=== PATIENT | female | born 1955 | race Caucasian/White ===

== ENCOUNTER 2021-01-30 16:46 | Outpatient (REF) | payer SELFPAY ==
[2021-02-01 12:09] LABS: COVID-19 RT-PCR UVMMC Result Negative (Negative)
== END 2021-01-30 16:47 | disposition home or self-care (01) ==
LOC: LBN 16:46
PROVIDERS: Visit Provider Physician Assistant Medical
DX: Z20.822 Contact with and (suspected) exposure to COVID-19 (principal)
CPT/HCPCS: U0003

== ENCOUNTER 2021-11-21 11:32 | Outpatient (REF) | payer MEDICAID, SELFPAY ==
[2021-11-21 15:10] LABS: ALT 30 U/L (14-59); AST 19 U/L (15-37); Albumin 3.7 g/dL (3.4-5.0); Alkaline Phosphatase 116 U/L (46-116); Anion Gap 9.6 mmol/L (3-11); BUN 22 mg/dL (7-18); Bilirubin, Total 0.7 mg/dL (0.2-1.0); CO2 26.4 mmol/L (21.0-32.0); CREATININE 0.8 mg/dL (0.55-1.02); Calcium 8.9 mg/dL (8.5-10.1); Chloride 104 mmol/L (98-107); Glucose 116 mg/dL (74-106); Potassium 3.8 mmol/L (3.5-5.1); Sodium 140 mmol/L (136-145); TSH 2.78 uIU/mL (0.36-3.74); Total Protein 7.8 g/dL (6.4-8.2)
[2021-11-21 15:26] LABS: Calculated LDL 152 mg/dL (<100); Cholesterol 243 mg/dL (<200); HDL Cholesterol 59 mg/dL (40-60); Triglyceride 163 mg/dL (<150)
[2021-11-21 16:38] LABS: Hemoglobin A1C 5.7 % (<5.7)
== END 2021-11-21 11:33 | disposition home or self-care (01) ==
LOC: NCHCN 11:32
PROVIDERS: Visit Provider Physician Assistant
DX: E03.9 Hypothyroidism, unspecified (principal); R73.03 Prediabetes; I10 Essential (primary) hypertension; E78.5 Hyperlipidemia, unspecified
CPT/HCPCS: 80053; 80061; 83036; 84443

== ENCOUNTER → 2021-12-19 02:17 | Outpatient (CLI) | payer MEDICAID, SELFPAY ==
--- NOTE | 2021-12-19 08:30 | DI.MAMMO_ITS ---
Exam(s) MAMMO SCREENING EXAM: MAMMO SCREENING CLINICAL HISTORY: SCREENING, Z12.39 TECHNIQUE: Mammograms were interpreted according to the usual protocol including computer analysis w [employer] CAD system, tomosynthesis and C-view imaging. COMPARISON: No exams were available for comparison. Prior exams were unable to be retrieved. FINDINGS: The breasts are composed of scattered fibroglandular densities, Breast Density category B. No suspicious masses or suspicious microcalcifications are seen. No skin thickening or abnormal axillary lymph nodes are seen. . IMPRESSION: BI-RADS Category 1, Negative mammogram Yearly screening mammography is recommended. Breast Density - Category B, scattered fibroglandular densities. A negative radiographic report should not delay biopsy if a dominant or clinically suspicious mass is present. Up to ten percent of cancers are not identified on mammography. A negative report may reinforce clinical impression. Adenosis and dense breasts may obscure an underlying neoplasm. False positive reports average 6 to 10%. Patient will receive a letter notifying them of these results.
== END ==
PROVIDERS: PCP Physician Assistant; Visit Provider Physician Assistant
DX: Z12.31 Encounter for screening mammogram for malignant neoplasm of breast (principal)
CPT/HCPCS: 77063; 77067

== ENCOUNTER 2022-03-12 06:22 | Day surgery (SDC) | payer MEDICAID, SELFPAY ==
--- NOTE | 2022-03-12 06:26 | W.ANESPRE ---
General Info Date of Service Date Performed: 03/12/22 Height: 4 ft 11 in Weight: 78.018 kg Body Mass Index (BMI): 34.7 Surgical Procedure: Operation Date: 03/12/22 07:40 Proposed Procedure Side Surgeon p Dupuytrens Release LRF Right Sterling Molina MD Meds Allergies and Home Medications Allergies Allergy/AdvReac Type Severity Reaction Status Date / Time codeine AdvReac Intermediate Nausea Verified 03/12/22 06:27 Home Medication Medication Instructions Recorded hydrochlorothiazide 25 mg tablet 25 mg PO QAM #30 tabs 01/10/13 levothyroxine 100 mcg tablet 100 mcg PO DAILY 01/10/13 calcium carbonate 600 mg-vitamin 2 cap PO DAILY 11/27/21 D3 12.5 mcg (500 unit) capsule (Calcium 600 with Vitamin D3) rosuvastatin 20 mg tablet 20 mg PO DAILY 11/27/21 Current Visit Medications: Current Medications Generic Name Dose Route Start Last Admin Trade Name Freq PRN Reason Stop Dose Admin Ringer's Solution 1,000 mls @ 80 mls/hr 03/12/22 06:00 IV 04/10/22 23:59 INFUSION CORKY Cefazolin Sodium/Dextrose 2 gm in 50 mls @ 100 mls/hr 03/12/22 06:00 Ancef Duplex IVPB 03/12/22 16:00 PREOP CORKY IV Miscellaneous Supplies 1 each 03/12/22 06:00 Iv Access IV 04/10/22 23:59 DIRECTED CORKY Sodium Chloride 0 ml 03/12/22 06:00 Normal Saline Flush 10 Ml Syr IV 04/10/22 23:59 PRN PRN Sodium Chloride 0 ml 03/12/22 06:00 Normal Saline 10 Ml Vial IJ 04/10/22 23:59 DIRECTED PRN Sterile Water 0 ml 03/12/22 06:00 Water,Injection,Sterile 10 Ml Vial IJ 04/10/22 23:59 DIRECTED PRN PFSH Active Problems Active Problems: Problem Status Onset Code Dupuytren's contracture of both hands M72.0 Scalp cyst L72.9 Medical History Medical History Arthritis Dupuytren contracture Essential hypertension Hyperlipidemia Hypothyroid Insomnia Nicotine dependence Obesity Prediabetes Vitamin D deficiency Medical History Comments:: Hx of apenea Surgical History Surgical History (Updated 03/12/22 @ 06:26 by Enrique Raya) Hx of cholecystectomy Hx of hysterectomy Tobacco Smoking/Tobacco Use Status: Current every day Tobacco Type: cigarettes Alcohol Alcohol Intake: current Alcohol intake frequency: a few times a week Substance Use Substance use: Never Substance use type: does not use Vital Signs and Lab Results Lab Results Blood Type / Crossmatch: No Data to Display Complete Blood Count: No Data to Display Complete Metabolic Panel: No Data to Display Liver Function Panel: No Data to Display Coagulation Panel: No Data to Display Cardiac Panel: No Data to Display Arterial Blood Gas: No Data to Display Venous Blood Gas: No Data to Display Pancreas Panel: No Data to Display Thyroid Panel: No Data to Display Infectious Disease: No Data to Display Blood Cultures: No Data to Display Toxicology Panel: No Data to Display Anesthesia Assessment and Plan Anesthesia History Personal History: Delayed Emergence Family History: No Family History of Anesthesia Complications Exercise Tolerance Exercise Tolerance: Metabolic Equivalents>4 Pertinent Negatives Pertinent Negatives: No Symptoms of GERD, No Major Cardiovascular Symptoms or Complaints, No Major Pulmonary Symptoms or Complaints and No History of CVA/TIA Cardiac & Pulmonary Exam Cardiac Exam: Normal S1/S2 Heart Sounds Pulmonary Exam: Clear Bilateral Breath Sounds Implantable Cardiac Device Does patient have a Pacemaker or an ICD?: No Airway Exam Known Difficult Airway: No Mallampati Class: 2 Mouth Opening: Normal (> 3cm) Thyromental Distance: Greater than 3 cm Neck Range of Motion: Full ROM Neck Circumference: Normal Teeth Condition: Normal Dentition ASA Classification ASA Score: ASA 2 Emergency Case?: No NPO Status NPO Status: NPO Clears >2 hours, Solids >8 hours Anesthesia Plan Resuscitation Status: Full Code Anesthesia Technique: General Anesthesia Airway Planned: Natural Airway Monitors Used: Standard Monitors
[2022-03-12 06:37] VITALS: BP 151/85; PULSE 63; RESP 16; TEMP 36.6; O2SAT 97
[2022-03-12] MEDS: Lactated Ringers 1,000 ML 80 ML IV (06:56)
[2022-03-12 07:21] VITALS: BMI 34.7
--- NOTE | 2022-03-12 07:22 | W.PREOPHP ---
Assessment and Plan Assessment and plan (1) Dupuytren's contracture of both hands: Status: Acute Assessment and plan: Alivia is a 67-year-old who has bilateral Dupuytren's contractures. Her left hand is most bothersome with a notable PIP contracture and a large central cord. Given the amount of contracture I do recommend operative fixation. Please see the previous office note for a review of this discussion. She has elected to proceed with a partial palmar fasciectomy with extension onto the ring finger for the spiral cord which is ras the PIP joint. I reviewed the risk of the procedure to include bleeding, infection, pain, stiffness, damage nerves and vessels, damage to muscle and tendons, recurrence, incomplete return of function, skin healing difficulties. Despite these risk, she elects to proceed. History of Present Illness History of Present Illness Chief Complaint: Left Palm and Ring Finger Dupuytren's Contracture Narrative: Alivia is a 67-year-old has bilateral Dupuytren's contracture. She has a notable PIP contracture about the left ring finger and a large cord within the left palm. She has been dealing this for some time but she is now having interference with her daily activities. She is here today for Dupuytren's contracture release of the left hand. She had no changes to her health. Review of Systems All systems reviewed & are unremarkable except as noted in HPI and below PFSH All Active Problems Scalp cyst (Acute) Dupuytren's contracture of both hands (Acute) Medical History Arthritis Dupuytren contracture Essential hypertension Hyperlipidemia Hypothyroid Insomnia Nicotine dependence Obesity Prediabetes Vitamin D deficiency Surgical History Hx of cholecystectomy Hx of hysterectomy Social History Smoking/Tobacco Use Status: Current every day Tobacco Type: cigarettes Smoking risk assessment performed?: Yes Alcohol Intake: current Alcohol Intake frequency: a few times a week Drug use: Never Substance use type: does not use Do you feel safe at home: Yes Do you feel safe in your relationship?: Yes Meds Allergies and Home Medications Allergies Allergy/AdvReac Type Severity Reaction Status Date / Time codeine AdvReac Intermediate Nausea Verified 03/12/22 06:27 Home Medications Medication Instructions Recorded Confirmed Type hydrochlorothiazide 25 mg tablet 25 mg PO QAM #30 tabs 01/10/13 03/12/22 Rx levothyroxine 100 mcg tablet 100 mcg PO DAILY 01/10/13 03/12/22 History calcium carbonate 600 mg-vitamin 2 cap PO DAILY 11/27/21 03/12/22 History D3 12.5 mcg (500 unit) capsule (Calcium 600 with Vitamin D3) rosuvastatin 20 mg tablet 20 mg PO DAILY 11/27/21 03/12/22 History Exam Resp Auscultation: clear to auscultation bilaterally Cardio Rate: regular rate Rhythm: regular rhythm Results Last Vital Signs Temp 36.6 C 03/12/22 06:37 Pulse 63 03/12/22 06:37 Resp 16 03/12/22 06:37 BP 151/85 H 03/12/22 06:37 Pulse Ox 97 03/12/22 06:37
--- NOTE | 2022-03-12 07:25 | PDOC.DSDIS_ITS ---
Date of service: 03/12/22 Time of Service: 07:26 Discharge Plan Disposition Patient Disposition: HOME Condition: Good Discharge Details Reason For Visit: L Dupuytren's Release Attending Provider: Sterling Molina Primary Care Provider: David Sanchez Home Meds and New Rx's Prescriptions: New acetaminophen 500 mg tablet 1,000 mg PO TID Qty: 90 0RF hydrocodone-acetaminophen 5-325 mg tablet 1 tab PO Q6H PRN (Reason: pain) Qty: 6 0RF ibuprofen 600 mg tablet 600 mg PO TID PRN (Reason: pain) Qty: 90 0RF Continued calcium carbonate-vitamin D3 [Calcium 600 with Vitamin D3] 600 mg-12.5 mcg (500 unit) capsule 2 cap PO DAILY rosuvastatin 20 mg tablet 20 mg PO DAILY levothyroxine 100 MCG tablet 100 mcg PO DAILY hydrochlorothiazide 25 MG tablet 25 mg PO QAM Qty: 30 0RF Discharge Instructions Additional Instructions: Dupuytren's Contracture Discharge Instructions Activity: You may use your fingers for light activity. You should limit any excessive motion or forceful gripping until the sutures have been removed. Dressings: You should keep the initial splint on until your follow-up visit in 7-10 days. You should avoid getting the splint wet. Medications: - You should take Tylenol and Ibuprofen around the clock as prescribed or per supervisor component assembler's recommendations. - You have Hydrocodone prescribed for breakthrough pain control. Take only as needed and limit use as much as possible. This may cause constipation. Follow-up: 7-10 days for wound check and suture removal. Referrals: Sterling Molina MD [ [facility] STAFF PHYSICIAN] - Equipment/Supplies: Splint Activity:: Elevate Remove Dressings/Wound Care:: Do Not Remove Shower/Bathe:: Cover Diet:: As Tolerated Discharge Orders Discharge Orders: Discharge Order (Routine); Ordered 03/12/22 Ordered By: Gabriel Uribe DS: Diagnosis Discharge Diagnosis (1) Dupuytren's contracture of both hands: Status: Acute
[2022-03-12] MEDS: ceFAZolin 2 GM/50 ML BAG IVPB (07:32)
[2022-03-12] MEDS: Lidocaine 1% Pres-Free W/EPI 1/200,000 10 ML VIAL (07:45)
[2022-03-12 08:19] VITALS: BP 107/70; PULSE 59; RESP 18; TEMP 36.4; O2SAT 96
[2022-03-12 08:47] VITALS: BP 137/73; PULSE 57; RESP 16; TEMP 36.3; O2SAT 98
--- NOTE | 2022-03-12 10:42 | W.ANESPOSTOP ---
Postoperative Evaluation Date, Time and Location Date Performed: 03/12/22 Time Performed: 08:47 Patient Location: Day Surgery Unit Vital Signs Most Recent Imported Vital Signs: Most Recent Vital Signs Temp Pulse Resp BP Pulse Ox 36.3 C L 57 L 16 137/73 98 03/12/22 08:47 03/12/22 08:47 03/12/22 08:47 03/12/22 08:47 03/12/22 08:47 Pain Score Most Recent Pain Score: Most Recent Pain Score Pain Level 0 03/12/22 08:47 Assessment Mental Status: Awake (Alert & Oriented to Patient Baseline) Airway and Respiratory Function: Patent airway with normal (patient baseline) respiratory exam Cardiovascular Function: Hemodynamically Stable Hydration Status: Adequately Hydrated Nausea & Vomiting: No Nausea or Vomiting Pain: Pt. Denies Any Pain Peripheral Nerve Block: Patient did not receive a nerve block
--- NOTE | 2022-03-12 21:04 | W.PM.OP ---
Date of service: 03/12/22 Time of Service: 08:00 Operative Note Operative Note DATE OF PROCEDURE: 03/12/22 PRE-OP DIAGNOSIS: Left ring finger Dupuytren's contracture POST-OP DIAGNOSIS: same PROCEDURE: Partial palmar fasciectomy of the left ring finger ray with extension onto the ring finger, up to the PIP joint SURGEON: Sterling Molina ANESTHESIA TYPE: General:No Airway Refer to Anesthesia Record ESTIMATED BLOOD LOSS: 10 PATHOLOGY: none sent TOURNIQUET TIME: 0 COMPLICATIONS: None Patient was transported to: same day Patient's condition: stable Indications: I have seen Alivia in clinic for symptoms Dupuytren's contracture, of the palm and ring finger. She had significant PIP contracture which made indications for surgical release. I discussed with her the options of treatment and she elected to proceed with partial palmar fasciectomy. I discussed the technical features of the case. I reviewed the risks of the procedure to include, but not limited to, bleeding, infection, pain, stiffness, incomplete release, damage to nerves or vessels, recurrence. Despite these risks, the patient elected to proceed. Findings: There was a dense central cord extending from the palmar fascia distally terminating around the A1 jin with an extension of a lateral cord up to the PIP joint. These cord structures were removed. Procedure Description: Alivia was greeted in the preoperative holding area where the correct side was identified and marked. The consent was reviewed with the patient and signed. All questions were answered. She was taken back to the operating room. The patient was placed into the supine position on the operating room table with the left arm on an arm board. All bony prominences were well padded. No prophylactic antibiotics were administered since this was a clean, elective hand surgical case. The left arm was then prepped with Chloraprep and draped in a standard fashion with stockinette and extremity drape. A timeout to confirm correct identity, side and site, procedure, allergies, anesthesia, and medical concerns was performed. A general, uninstrumented airway, anesthesia was then administered. The surgical site was marked as a Trisha type incision extending from the palm and onto the ring finger. This area was then anesthetized with 1% Lidocaine with epinephrine. This incision was then taken down through the skin. The central cord in the palm was extremely adherent and there is sections of the skin which were folded and attached to the underlying cord. This was slowly elevated off of the underlying cord and so that the skin was freely mobile. This was taken out to the PIP joint of the ring finger. Once again the corners increases of the contracture difficult due to their adhered nature to the cord. Once this was elevated the cord was visualized. Starting distally I elevated the cord from its attachment down to the ulnar side of the ring finger. This seemed to be a lateral base cord. I was unable to find any neurovascular bundle palmar to the cord. I was able to work underneath the cord and then transected distally. I then slowly began elevating from the other soft tissues moving from a distal to proximal direction. This then extended onto the central cord more proximally. There was an extension of this cord going down towards the A1 jin. This was released completely. The cord was fully taken down into the palm and then resected from its origin of the proximal palmar fascia. The finger now is able to be fully extended. No tourniquet was used and there was no apparent arterial injury no nervous injury. The finger had full extension. The wound was then irrigated and the skin was closed with a 4-0 Nylon. The wound was dressed with Xeroform, 4 x 4's, web roll. She was placed into an extension splint involving the ulnar 3 digits keeping the finger extended at maximal extension. The patient tolerated the procedure well and was returned to the Same Day Surgery area in a stable condition suffering no known complication.
== END 2022-03-12 09:20 | disposition home or self-care (01) ==
PROVIDERS: PCP Physician Assistant; Visit Provider Student in an Organized Health Care Education/Training Program
PROC: (CPT 26045; principal; 2022-03-12 07:30)
DX: M72.0 Palmar fascial fibromatosis [Dupuytren] (principal); I10 Essential (primary) hypertension; E78.5 Hyperlipidemia, unspecified; R73.03 Prediabetes
CPT/HCPCS: 26123; J0690; J2704

== ENCOUNTER → 2022-06-23 09:57 | Outpatient (BNVA) | payer MEDICARE, MEDICAID, SELFPAY | PROVIDERS: PCP Physician Assistant; Referring Provider Physician Assistant; Visit Provider Surgery | DX: D17.9 Benign lipomatous neoplasm, unspecified (principal); L72.3 Sebaceous cyst | CPT/HCPCS: 11442 ==

== ENCOUNTER 2022-06-23 11:14 | Outpatient (REF) | payer MEDICARE, MEDICAID, SELFPAY ==
--- NOTE | 2022-06-23 10:40 | SKI_PTH ---
PATIENT: Alivia Mena LOC: [facility] U#:[id number] AGE/SX: 67/F ROOM: RE06/23/[address]: Tricia Diane : 1955 BED: DIS: 06/23/2022 SPEC #: [id number] RECD: 06/23/22 12:28 STATUS: KIARA REQ #: [id number] MJ: 06/23/22 10:[address]: Tricia Diane DEPT: Surgical Specimen RECD BY: Alivia Lynn ENTERED: 06/23/22 12:28 SP TYPE: SKI OTHR DR: David Sanchez Tissues: 1 - SKIN BIOPSY(SHAVE/PUNCH) Procedures: SKIN LEVEL 4 Comments: [id number]
== END 2022-06-23 11:15 | disposition home or self-care (01) ==
LOC: LBN 11:14
PROVIDERS: PCP Physician Assistant; Visit Provider Surgery
DX: D17.0 Benign lipomatous neoplasm of skin and subcutaneous tissue of head, face and neck (principal)
CPT/HCPCS: 88305

== ENCOUNTER → 2022-07-03 11:20 | Outpatient (BNVA) | payer MEDICARE, MEDICAID, SELFPAY | PROVIDERS: PCP Physician Assistant; Referring Provider Physician Assistant; Visit Provider Surgery | DX: D17.9 Benign lipomatous neoplasm, unspecified (principal); Z87.820 Personal history of traumatic brain injury ==

== ENCOUNTER 2022-07-03 11:42 | Outpatient (REF) | payer MEDICARE, MEDICAID, SELFPAY ==
[2022-07-03 12:51] LABS: BUN 23 mg/dL (7-18); CREATININE 0.8 mg/dL (0.55-1.02); Calcium 9.2 mg/dL (8.5-10.1); Chloride 105 mmol/L (98-107); Estimated GFR 81.72 (mL/min/1.73m2); Glucose 95 mg/dL (74-106); Potassium 3.8 mmol/L (3.5-5.1); Sodium 142 mmol/L (136-145)
== END 2022-07-03 11:43 | disposition home or self-care (01) ==
LOC: LBN 11:42
PROVIDERS: PCP Physician Assistant; Visit Provider Surgery
DX: E03.9 Hypothyroidism, unspecified; E78.5 Hyperlipidemia, unspecified; F17.200 Nicotine dependence, unspecified, uncomplicated; R73.03 Prediabetes; Z87.820 Personal history of traumatic brain injury
CPT/HCPCS: 80048

== ENCOUNTER 2023-08-05 08:56 | Outpatient (REF) | payer OTHER, SELFPAY ==
[2023-08-05 15:41] LABS: ALT 29 U/L (14-59); AST 13 U/L (15-37); Albumin 4.1 g/dL (3.4-5.0); Alkaline Phosphatase 129 U/L (46-116); Anion Gap 12.6 mmol/L (3-11); BUN 20 mg/dL (7-18); Bilirubin, Total 0.8 mg/dL (0.2-1.0); CO2 27.4 mmol/L (21.0-32.0); CREATININE 0.8 mg/dL (0.55-1.02); Calcium 9.6 mg/dL (8.5-10.1); Calculated LDL 164 mg/dL (<100); Chloride 104 mmol/L (98-107); Cholesterol 270 mg/dL (<200); Estimated GFR 81.21 (mL/min/1.73m2); Glucose 106 mg/dL (74-106); HDL Cholesterol 75 mg/dL (40-60); Potassium 4.2 mmol/L (3.5-5.1); Sodium 144 mmol/L (136-145); TSH 5.28 uIU/Ml (0.36-3.74); Triglyceride 158 mg/dL (<150)
[2023-08-05 16:17] LABS: Hemoglobin A1C 5.8 % (<5.7)
== END 2023-08-05 08:57 | disposition home or self-care (01) ==
LOC: NCHCN 08:56
PROVIDERS: PCP Physician Assistant; Visit Provider Physician Assistant
DX: I10 Essential (primary) hypertension (principal); R73.03 Prediabetes
CPT/HCPCS: 80053; 80061; 83036; 84443

== ENCOUNTER → 2023-08-13 04:26 | Outpatient (CLI) | payer OTHER, SELFPAY ==
--- NOTE | 2023-08-13 12:33 | DI.MAMMO_ITS ---
Exam(s) MAMMO SCREENING EXAM: MAMMO SCREENING CLINICAL HISTORY: SCREENING,Z12.31 TECHNIQUE: Bilateral full field digital CC and MLO mammographic images were obtained with 3D tomosyn thesis and utilizing computer aided detection (CAD). COMPARISON: Available for comparison. FINDINGS: Masses/Architectural Distortion: None seen. Microcalcifications: No suspicious pleomorphic-type are seen. Skin Thickening/Nipple Retraction: None. IMPRESSION: 1. No significant interval change with no specific features of malignancy noted. 2. Unless there is more urgent need, screening mammography is recommended, as per [employer] guidelines. BI-RADS Category 1 - Negative Breast Density - Category B - Scattered areas of fibroglandular density Breast density category C or D implies that the patient has dense breast tissue. Dense breast tissue is very common and is not abnormal but dense breast tissue can make it harder to find cancer on a ma mmogram. Also, dense breast tissue may increase their breast cancer risk. This information about the result of the mammogram report was provided to the patient to raise their awareness. Use this report when you speak with the patient about their risks for breast cancer, which includes their family hist ory. At that time, you may recommend for more screening tests (Ultrasound or MRI) as they might be us eful based on their risk. A negative radiographic report should not delay biopsy if a dominant or clinically suspicious mass is present. Up to ten percent of cancers are not identified on mammography. A negative report may reinforce clinical impression. Adenosis and dense breasts may obscure an underlying neoplasm. False positive reports average 6 to 10%. Patient will receive a letter notifying them of these results.
== END ==
PROVIDERS: PCP Physician Assistant; Visit Provider Physician Assistant
DX: Z12.31 Encounter for screening mammogram for malignant neoplasm of breast (principal)
CPT/HCPCS: 77063; 77067

== ENCOUNTER 2025-04-17 11:10 | Outpatient (REF) | payer MEDICARE, MEDICAID, SELFPAY ==
[2025-04-17 15:45] LABS: HCT 37.3 % (36.0-46.0); HGB 12.4 g/dL (11.2-15.7); MCH 28.9 pg (27.0-33.0); MCHC 33.2 % (32.0-36.0); MCV 87 fL (80-95); MPV 10.9 fL (8.0-11.0); Platelet Count 326 10^3/uL (130-400); RBC 4.29 10^6/uL (3.93-5.22); RDW 13.0 % (11.7-14.6); RDW-SD 41.0 fL; WBC 6.67 10^3/uL (4.4-10.8)
[2025-04-17 16:04] LABS: Hemoglobin A1C 5.5 % (<5.7); TSH 1.65 uIU/mL (0.55-4.78); Vitamin D 25 Total 28 ng/mL (30-100)
[2025-04-17 16:12] LABS: Anion Gap 8.9 mmol/L (3-11); BUN 17 mg/dL (9-23); CO2 30.1 mmol/L (20.0-31.0); Calcium 9.1 mg/dL (8.3-10.6); Chloride 106 mmol/L (98-107); Cholesterol 167 mg/dL (<200); Glucose 104 mg/dL (74-106); HDL Cholesterol 70 mg/dL (>40); Potassium 3.6 mmol/L (3.5-5.1); Sodium 145 mmol/L (136-145)
== END 2025-04-17 11:11 | disposition home or self-care (01) ==
LOC: NCHCN 11:10
PROVIDERS: PCP Physician Assistant; Visit Provider Physician Assistant
DX: E78.5 Hyperlipidemia, unspecified (principal); R73.03 Prediabetes; E03.9 Hypothyroidism, unspecified; E55.9 Vitamin D deficiency, unspecified
CPT/HCPCS: 80048; 80061; 82306; 85027; 83036; 84443

== ENCOUNTER 2025-04-21 15:00 | Outpatient (CLI) | payer MEDICARE, MEDICAID, SELFPAY ==
[2025-04-21 15:30] LABS: D-Dimer 632 ng/mlFEU (<500)
== END 2025-04-21 15:01 | disposition home or self-care (01) ==
LOC: LBO 15:01
PROVIDERS: PCP Physician Assistant; Visit Provider Family Medicine
DX: R07.89 Other chest pain (principal)
CPT/HCPCS: 36415; 85379

== ENCOUNTER → 2025-04-21 15:04 | Outpatient (CLI) | payer MEDICARE, MEDICAID, SELFPAY ==
--- NOTE | 2025-04-21 | DI.RAD_ITS ---
Exam(s) XR CHEST 2V PA LATERAL EXAM: XR CHEST 2V PA LATERAL CLINICAL HISTORY: R07.89 Other chest pain. TECHNIQUE: 2D digital imaging was performed. COMPARISON: No exams were available for comparison FINDINGS: 2 views: There is mild cardiomegaly. The mediastinum is not widened. Lungs are clear. No infiltrates nor pleural effusions. No pulmonary edema. IMPRESSION: No acute pulmonary findings.Mild cardiomegaly noted. DATA REPOSITORY: RADIATION DOSE DELIVERED:
== END ==
LOC: DI 15:04
PROVIDERS: PCP Physician Assistant; Visit Provider Family Medicine
DX: R07.89 Other chest pain (principal)
CPT/HCPCS: 71046

== ENCOUNTER → 2025-04-25 00:40 | Outpatient (CLI) | payer MEDICARE, MEDICAID, SELFPAY ==
[2025-04-25] MEDS: Normal Saline - Diluent 50 ML VIAL IJ (11:19)
[2025-04-25] MEDS: Normal Saline Flush 10 ML SYR IVP (11:20)
[2025-04-25] MEDS: Omnipaque 350 MG/ML 500 ML BTL-Imaging package IJ (11:23)
--- NOTE | 2025-04-25 11:37 | DI.CT_ITS ---
Exam(s) CT CHEST PE CTA EXAM: CT CHEST PE CTA CLINICAL HISTORY: ATYPICAL CHEST PAIN, R07.89. TECHNIQUE: Imaging Protocol: Axial CT angiography was performed with multi- slice acquisition and multi-planar reconstructions as well as axial, coronal and sagittal MIP reconstructions. Computer aided detection (CAD) was utilized. CONTRAST MATERIAL: Intravenous: Omnipaque 350 Contrast volume:100 ml COMPARISON: CR XR CHEST 2V PA LATERAL from 04/21/2025 FINDINGS: Pulmonary Arteries: No evidence of filling defect to suggest pulmonary emboli. Mediastinum and Safia: No dominant adenopathy or fluid collection. Pulmonary parenchyma: No consolidation or dominant measurable mass. Mild emphysematous changes. Pleura: No effusion or pneumothorax. Heart: The heart is mildly dilated. Mild coronary artery calcifications are seen. Aorta: Thoracic aorta non-dilated. No dissection. Upper abdomen: No acute findings. 3 centimeter low-density circumscribed lesion of the left adrenal gland consistent with an adenoma. No for prior cholecystectomy. Bones: Unremarkable for age. Tubes, Catheters, and Lines: None Soft tissues: Unremarkable. IMPRESSION: No evidence of pulmonary embolism or other acute abnormality.. RADIATION DOSE DELIVERED: 80.05mGy.cm Total DLP DATA REPOSITORY: All CT scans at this facility are submitted to the National Radiology Data Registry (NRDR) Dose Index Registry (DIR) with the [employer] (A[employer]). RADIATION OPTIMIZATION: All CT scans at this facility use at least one of these dose optimization techniques: automated exposure control; mA and/or kV adjustment per patient size (includes targeted exams where dose is matched to clinical indication); or iterative reconstruction.
== END ==
LOC: DI 00:40
PROVIDERS: PCP Physician Assistant; Visit Provider Family Medicine
DX: R07.89 Other chest pain (principal)
CPT/HCPCS: 71275